=== PATIENT | male | born 1945 ===

== ENCOUNTER 2021-05-01 09:07 | Outpatient (RCR) | payer MEDICARE, SELFPAY ==
[2021-05-01 10:49] VITALS: BP 119/61; PULSE 46; RESP 22; TEMP 36.5; O2SAT 94
[2021-05-01] MEDS: diphenhydrAMINE HCl CAP 25 MG CAPSULE PO (10:54)
[2021-05-01] MEDS: ACETAMINOPHEN 325 MG TABLET 650 MG PO (10:56)
[2021-05-01] MEDS: FAMOTIDINE 20 MG TABLET PO (10:56)
[2021-05-01 12:47] VITALS: BP 111/67; PULSE 73; RESP 20; O2SAT 97
== END 2021-05-01 16:00 ==
LOC: AMCINF 09:07
PROVIDERS: Visit Provider Internal Medicine Hematology & Oncology
DX: U07.1 COVID-19 (principal)
CPT/HCPCS: A9270; M0247; Q0247